=== PATIENT | male | born 1945 | race Caucasian/White ===

== ENCOUNTER 2017-11-24 12:16 | Outpatient (CLI) | payer MEDICARE, OTHER ==
[~2017-11-24] VITALS: Ht 170.2 cm; Wt 87.3 kg
[2017-11-24] VITALS (7 sets, daily range): BP systolic 110–1221; BP diastolic 73–86; PULSE 50–61; TEMP 98.5
[2017-11-24 12:43] LABS: HEMATOCRIT 45.1 % (42.0-52.0); HEMOGLOBIN 15.4 g/dl (13.5-18.0); MEAN CELL VOLUME 93 fl (80.0-100.0); MEAN CORPUSCULAR HEMOGLOBIN 32 pg (27.0-31.0); MEAN CORPUSCULAR HGB CONC 34 g/dl (33.0-37.0); MEAN PLATELET VOLUME 10.6 fl (7.4-10.4); PLATELET COUNT 179 K/mm3 (130-400); RED BLOOD COUNT 4.86 M/mm3 (4.20-5.60); REDCELL DISTRIBUTION WIDTH-CV 12.7 % (11.5-14.5)
[2017-11-24 12:48] LABS: PROTHROMBIN TIME 11.1 SECONDS (9.7-12.8)
[2017-11-24 12:53] LABS: CALCIUM 9.5 mg/dL (8.4-10.2); POTASSIUM 4.4 mmol/L (3.4-5.0)
[2017-11-24] MEDS ORDERED: LOPRESSOR 225 MG/TAB PO (13:28)
[2017-11-24] MEDS ORDERED: HCTZ 25MG TAB25 MG PO (13:28)
[2017-11-24] MEDS ORDERED: PRAVACHOL80 MG PO (13:29)
[2017-11-24] MEDS ORDERED: FEMARA PO (13:30)
[2017-11-24] MEDS ORDERED: FLOMAX 0.40.4 MG/CAP PO (13:31)
[2017-11-24] MEDS ORDERED: DHEA25 M3 PO (13:32)
[2017-11-24] MEDS ORDERED: [UNRECOGNIZED DRUG - OTHER] PO (13:33)
[2017-11-24] MEDS ORDERED: VITAMIND3 5000 PO (13:33)
== END 2017-11-24 16:28 | disposition home or self-care (01) ==
LOC: COL.RAD 12:16
PROVIDERS: Internal Medicine Interventional Cardiology
DX: I71.2 Thoracic aortic aneurysm, without rupture (principal); I08.0 Rheumatic disorders of both mitral and aortic valves; I10 Essential (primary) hypertension
CPT/HCPCS: G9654; J2250; J3010

== ENCOUNTER → 2021-10-07 | Outpatient (CLI) | payer MEDICARE, BC ==
[~2021-10-07] MED LIST: DHEA25 M3 PO; FEMARA PO; FLOMAX 0.40.4 MG/CAP PO; HCTZ 25MG TAB25 MG PO; LOPRESSOR 225 MG/TAB PO; PRAVACHOL80 MG PO; VITAMIND3 5000 PO; [UNRECOGNIZED DRUG - OTHER] PO
[2021-10-07 11:57] LABS: BASO # 0.1 K/mm3 (0.0-0.2); BASO % 0.8 % (0.0-2.0); EOS # 0.1 K/mm3 (0.0-0.7); EOS % 1.1 % (0.0-4.0); GRAN # 3.8 K/mm3 (1.4-6.5); GRAN % 59.9 % (42.2-75.2); HEMATOCRIT 48.9 % (42.0-52.0); HEMOGLOBIN 16.4 g/dl (13.5-18.0); LYMPH # 1.7 K/mm3 (1.2-3.4); LYMPH % 26.3 % (20.0-51.0); MEAN CELL VOLUME 97 fl (80.0-100.0); MEAN CORPUSCULAR HEMOGLOBIN 32 pg (27-31); MEAN CORPUSCULAR HGB CONC 34 g/dl (33.0-37.0); MEAN PLATELET VOLUME 10.4 fl (7.4-10.4); MONO # 0.7 K/mm3 (0.1-0.6); MONO % 11.4 % (1.7-9.3); PLATELET COUNT 180 K/mm3 (130-400); RED BLOOD COUNT 5.06 M/mm3 (4.20-5.60); REDCELL DISTRIBUTION WIDTH-CV 12.4 % (11.5-14.5)
[2021-10-07 12:20] LABS: ALANINE AMINOTRANSFERASE 49 U/L (0-55); ALBUMIN 4.4 gm/dL (3.4-4.8); ALKALINE PHOSPHATASE 79 U/L (40-150); ANION GAP 10 mmol/L (7-16); AST,SGOT 32 U/L (5-34); BILIRUBIN,TOTAL 0.7 mg/dL (0.2-1.2); BLOOD UREA NITROGEN 16 mg/dL (8-26); CALCIUM 9.4 mg/dL (8.4-10.2); CARBON DIOXIDE 28 mmol/L (23-31); CHLORIDE 101 mmol/L (98-107); CREATININE, serum 1.18 mg/dL (0.72-1.25); GLUCOSE 94 mg/dL (70-99); POTASSIUM 4.4 mmol/L (3.5-4.5); SODIUM 139 mmol/L (136-145); TOTAL PROTEIN 7.4 gm/dL (6.2-8.1)
[2021-10-07 12:39] LABS: THYROID STIMULATING HORMONE 2.537 uIU/mL (0.350-4.940)
[2021-10-07 12:41] LABS: TROPONIN-I < 0.010 ng/mL (0.00-0.033)
== END ==
LOC: COL.LAB 10:54
DX: R00.1 Bradycardia, unspecified (principal); R07.89 Other chest pain; R42 Dizziness and giddiness